=== PATIENT | male | born 1990 | race African-American/Black ===

== ENCOUNTER 2023-12-15 14:15 | Emergency (ER) | payer MEDICAID ==
[~2023-12-15] VITALS: Ht 182.9 cm; Wt 93.0 kg
[2023-12-15] MEDS ORDERED: KETOROLAC TROMETHAMINE INJ 30 MG/ML VIAL ONE (14:43)
[2023-12-15] MEDS ORDERED: CYCLOBENZAPRINE 10 MG TABLET ONE (14:43)
[2023-12-15] MEDS ORDERED: ACETAMINOPHEN ES 500 MG TABLET ONE (14:43)
[2023-12-15] MEDS: KETOROLAC TROMETHAMINE INJ 30 MG/ML VIAL IM ONE (14:54)
[2023-12-15] MEDS: CYCLOBENZAPRINE 10 MG TABLET PO ONE (14:54)
[2023-12-15] MEDS: ACETAMINOPHEN ES 500 MG TABLET PO ONE (14:55)
[2023-12-15] MEDS ORDERED: KETO10TA2 PO (15:51)
[2023-12-15] MEDS ORDERED: CYCL5TAB PO (15:51)
[2023-12-15 16:03] VITALS: BP 139/80; TEMP 98.3; O2SAT 98
== END 2023-12-15 16:04 | disposition home or self-care (01) ==
LOC: ER 14:20
DX: S39.012A Strain of muscle, fascia and tendon of lower back, initial encounter (principal); Z79.899 Other long term (current) drug therapy; X58.XXXA Exposure to other specified factors, initial encounter; Y93.89 Activity, other specified; Y92.89 Other specified places as the place of occurrence of the external cause; Y99.8 Other external cause status
CPT/HCPCS: 99283; 96372; J1885